=== PATIENT | male | born 1995 | race Caucasian/White ===

== ENCOUNTER 2023-10-27 13:59 | Outpatient (CLI) | payer BC, SELFPAY ==
--- NOTE | 2023-10-27 14:00 | CRLHL7_ITS ---
For Patients: As a result of the Century Cures Act, medical imaging exams and procedure reports are released immediately into your electronic medical record. You may view this report before your referring provider. If you have questions, please contact your health care provider. INDICATION: Right swelling epididymitis COMPARISON: none TECHNIQUE: Albert scale imaging was performed of the scrotum. In addition color Doppler and spectral Doppler analysis was performed of the testes. FINDINGS: The testes demonstrate normal arterial and venous blood flow on color Doppler and spectral Doppler analysis. The testes have uniform echogenicity with no evidence of a suspicious mass or area of inflammation. The right testis measures 5.1 x 2.1 x 3.3 cm in size and the left testis measures 5.1 x 2.0 x 2.9 cm. Increased size and vascularity of the right epididymis. Left varicocele. No hydrocele. IMPRESSION: Right epididymitis. Normal testicles. Dictated by Humza Howard MD @ 10/28/2023 12:54:08 PM (Electronically Signed)
== END 2023-10-27 14:00 | disposition home or self-care (01) ==
LOC: US 14:01
PROVIDERS: PCP Family Medicine; Visit Provider Family Medicine
DX: N45.1 Epididymitis (principal)
CPT/HCPCS: 76870; 93976